=== PATIENT | female | born 1960 | race Caucasian/White ===

== ENCOUNTER 2022-01-09 16:30 | Emergency (ER) | payer OTHER ==
[~2022-01-09] VITALS: Ht 154.9 cm; Wt 58.5 kg
[2022-01-09] MEDS ORDERED: LEVOTHYROXINE25 MC1 PO (16:55)
[2022-01-09] MEDS ORDERED: ONDANSETRON ODT4 MG PO (18:17)
[2022-01-09] MEDS ORDERED: PROTONIX40 MG PO (18:17)
== END 2022-01-09 18:46 | disposition home or self-care (01) ==
LOC: ED 16:30
DX: K52.9 Noninfective gastroenteritis and colitis, unspecified (principal); Z79.899 Other long term (current) drug therapy; Z85.43 Personal history of malignant neoplasm of ovary; Z20.822 Contact with and (suspected) exposure to COVID-19
CPT/HCPCS: 36415; 80053; 81001; 83690; 85025; 87502; C9803; J1170; J2405; J7121; U0003